=== PATIENT | male | born 1985 | race Caucasian/White ===

== ENCOUNTER 2016-10-21 23:06 | Emergency (ER) | payer OTHER ==
[~2016-10-21] VITALS: Ht 180.3 cm; Wt 80.0 kg
[~2016-10-21 23:06] MED LIST: ATEN50TA PO; LEVE500 PO
[2016-10-21 23:13] VITALS: BP 138/79; PULSE 108; RESP 16; TEMP 98; O2SAT 98
--- NOTE | 2016-10-21 23:30 | PD ---
HPI . Seizure Chief Complaint: Seizure Time Seen by Provider: 23:18 Travel History International Travel<30 days: No Contact w/Intl Traveler<30days: No Traveled to known affect area: No History of Present Illness HPI Patient presents to us via [facility] status post a seizure. EMS reported that he was postictal on their arrival. The seizure was witnessed by a coworker. The patient has no recollection of the event. This seizure was described to EMS as a tonic-clonic type seizure. Any associated injury. The patient told me that he had had one previous seizure in July and that he was not on any medications for seizures. Patient reports that he's been working 2 jobs for the last 3 weeks and has been averaging 5 hours of sleep per night. He states that he is very fatigued. PFSH Past Medical History Anxiety: Yes Heart Rhythm Problems: Yes Cardiovascular Problems: Yes (ABLATION) Diminished Hearing: No Hypertension: Yes Seizures: Yes Past Surgical History Cardiac Surgery: Yes (ablation) Social History Alcohol Use: Yes (mod) Tobacco Use: No Substance Use: No Allergies-Medications (Allergen,Severity, Reaction): Coded Allergies: No Known Allergies (Unverified , 10/21/16) Reported Meds & Prescriptions Reported Meds & Active Scripts Active Atenolol 50 Mg Tab 50 Mg PO BID Review of Systems Except as stated in HPI: all other systems reviewed are Neg General / Constitutional: No: Fever, Chills HENT: No: Headaches Cardiovascular: No: Chest Pain or Discomfort Respiratory: No: Shortness of Breath Gastrointestinal: No: Nausea, Vomiting, Diarrhea Musculoskeletal: No: Myalgias, Arthralgias Neurologic: Positive: Seizures, No: Focal Abnormalities, Incontinence Psychiatric: No: Substance Abuse Physical Exam Narrative GENERAL: Patient is now awake and alert and fully oriented. SKIN: Warm and dry. HEAD: Atraumatic. Normocephalic. He has a very superficial red lebron on the vertex of his scalp. EYES: Pupils equal and round. Extraocular motions are intact. ENT: No nasal bleeding or discharge. Mucous membranes pink and moist. NECK: Trachea midline. Neck is supple and nontender. CARDIOVASCULAR: Regular rate and rhythm. Heart sounds are normal. RESPIRATORY: No accessory muscle use. Lungs are clear with full air movement throughout. GASTROINTESTINAL: Abdomen soft, non-tender, nondistended. MUSCULOSKELETAL: No obvious deformities. No edema. NEUROLOGICAL: Awake and alert. No obvious cranial nerve deficits. Motor grossly within normal limits. Normal speech. PSYCHIATRIC: Appropriate mood and affect; insight and judgment normal. Data Data Last Documented VS Vital Signs Date Time Temp Pulse Resp B/P Pulse Ox O2 Delivery O2 Flow Rate FiO2 10/21/16 23:15 108 Room Air 10/21/16 23:13 98.0 16 138/79 98 Orders Levetiracetam (Keppra) (10/21/16 23:45) [facility] Medical Decision Making Medical Screen Exam Complete: Yes Emergency Medical Condition: Yes Medical Record Reviewed: Yes (I have reviewed his records. This patient has actually been seen twice for seizures. He has had a full workup both times the workups have been negative. His most recent evaluation was in July 2016. He was prescribed Keppra at that time.) Differential Diagnosis Differential diagnosis of seizure includes but is not limited to epilepsy, electrolyte abnormality, previous stroke, closed head injury Narrative Course Patient presents status post a seizure. He has been previously evaluated for seizures and his workup has been negative. I will not repeat that workup here tonight. He does need to follow up with neurology we'll give him a prescription for Keppra. Diagnosis Primary Impression: Seizure Referrals: Humble Grover MD 3 days Patient Instructions: General Instructions, Recurrent Seizures in Adults (DC) Med/Other Pt SpecificInfo: Prescription(s) given Scripts Levetiracetam (Keppra)500 Mg [id number] Mg PO BID #60 TAB Ref 0 Prov:Sherri Jacobo MD 10/21/16 Sherri Jacobo MD Oct 21, 2016 23:30
[2016-10-21] MEDS ORDERED: LEVE500 PO (23:33)
[2016-10-21] MEDS ORDERED: levETIRAcetam 250 MG TAB PO ONE ×2 (23:45)
--- NOTE | 2016-10-22 23:46 | EKG ---
Date Performed: 10/21/2016 Time Performed: 23:08:24 PTAGE: 31 years EKG: ECTOPIC ATRIAL TACHYCARDIA LEFT POSTERIOR FASCICULAR BLOCK MINIMAL VOLTAGE CRITERIA FOR LVH , CONSIDER NORMAL VARIANT ABNORMAL ECG NO PREVIOUS TRACING DOCTOR: Jesus Cuadra Interpretating Date/Time 10/22/2016 23:45:22
== END 2016-10-22 00:18 | disposition home or self-care (01) ==
LOC: NEPA 23:06
DX: R56.9 Unspecified convulsions (principal); R53.83 Other fatigue; R94.31 Abnormal electrocardiogram [ECG] [EKG]; I10 Essential (primary) hypertension; Z86.79 Personal history of other diseases of the circulatory system; Z86.69 Personal history of other diseases of the nervous system and sense organs; Z86.59 Personal history of other mental and behavioral disorders
CPT/HCPCS: 93005; 99284